=== PATIENT | female | born 1960 | race American Indian/Alaskan Native ===

== ENCOUNTER 2020-10-03 10:00 | Day surgery (SDC) | payer MEDICARE, OTHER, MEDICAID ==
[~2020-10-03] VITALS: Ht 162.6 cm; Wt 94.5 kg
[~2020-10-03 10:00] MED LIST: BACLOFEN10 MG PO; BUPROPION XL150 MG PO; CALCIUM + VITA1 EAC1 PO; CIPRO500 MG PO; CLINDAMYCIN HC300 MG PO; CYMBALTA60 MG PO; DEXILANT60 MG PO; DICLOFENAC POTA50 MG PO; DICLOFENAC SODI50 MG PO; DICYCLOMINE HCL10 MG PO; FEOSOL325 MG PO; FEXOFENADINE H180 MG PO; FLAGYL500 MG PO; FOSAMAX70 MG PO; GABAPENTIN300 MG PO; HYDROCODON-ACE1 EA11 PO; LOPERAMIDE2 MG PO; LYRICA100 MG PO; MAGNESIUM OXID400 MG PO; METHOCARBAMOL750 MG PO; MULTI VITAMIN1 EACH PO; NICOTINE LOZENGE2 MG BUCCAL; NORCO 10-325 T1 EACH PO; OXYCODONE HCL10 MG PO; OXYCODONE HCL15 MG PO; OXYCONTIN10 MG PO; PLAQUENIL200 MG PO; POTASSIUM CHLO20 ME1 PO; QUESTRAN PACKET4 GM PO; RHINASE LUBRICA30 ML NAS; RHINOCORT AQUA8.6 GM NAS; ROBAXIN-750750 MG PO; ROPINIROLE HCL0.5 MG PO; ROPINIROLE HCL2 MG PO; VITAMIN C500 M5 PO; ZYRTEC10 M3 PO
[2020-10-03] MEDS ORDERED: HYDROCODON-ACE1 EA10 PO (13:08)
[2020-10-03] MEDS ORDERED: DICLOFENAC SODI75 MG PO (13:08)
--- NOTE | 2020-10-07 07:05 | OR ---
[facility] [address] [place], [place] [address] Signed DATE OF OPERATION: 10/03/2020 SURGEON: Julius Mclean MD PREOPERATIVE DIAGNOSIS: Medial meniscus tear, lateral meniscus tear, right knee. POSTOPERATIVE DIAGNOSIS: Medial meniscus tear, lateral meniscus tear, right knee. PROCEDURE PERFORMED: Right knee arthroscopy with debridement. CABLE ENGINEER: Stormy Smith PA-C ANESTHESIA: General. BLOOD LOSS: Minimal. BRIEF HISTORY: Nathalie is a 60-year-old female with continued worsening of pain in her knee. MRI is consistent with the above. The risks and benefits of operative treatment were discussed with her and she elected to proceed. DESCRIPTION OF PROCEDURE: Once consent was obtained, she was taken to the operating room. After adequate anesthesia, she was placed on operating room table, all downside pressure points were well padded. The right knee was prepped and draped in a standard sterile fashion. The knee was placed in the leg donohue with no tourniquet. The left knee was flexed, abducted, and externally rotated on a well-padded leg donohue. The standard inferolateral and superolateral portals were made and the scope was introduced in the knee. 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 The trochlea was intact. Lateral compartment showed a frayed tear posteriorly, but it was minimal. The medial compartment showed near 100% grade 4 chondromalacia with exposed bone on both sides. Electronically Signed By: JULIUS MCLEAN MD 10/07/20 0705 PATIENT NAME: NATHALIE MOORE OPERATIVE REPORT DATE OF : 60 REPORT #: [id number] PHYSICIAN: JULIUS MCLEAN MD PCP: BECK QUINTEROS MD REPORT IS CONFIDENTIAL AND NOT TO BE RELEASED WITHOUT AUTHORIZATION [address] [place], [place] [address] Signed There was complex tear posteriorly and medially. Standard inferomedial portal was re-established and the meniscus was further debrided. There were no cartilage because there was basically no cartilage left. The scope was withdrawn. Portals were closed with 3-0 nylon and the knee was injected with 60 mg Toradol. The wounds were dressed with Adaptic, ABD, and Sam wrap. She tolerated the procedure well. All sponge, needle, and instrument counts were correct. Julius Mclean MD BA/MODL /[id number] Copies: ~ Electronically Signed By: JULIUS MCLEAN MD 10/07/20 0705 PATIENT NAME: NATHALIE MOORE OPERATIVE REPORT DATE OF : 60 REPORT #: [id number] PHYSICIAN: JULIUS MCLEAN MD PCP: BECK QUINTEROS MD REPORT IS CONFIDENTIAL AND NOT TO BE RELEASED WITHOUT AUTHORIZATION
== END 2020-10-03 15:25 | disposition home or self-care (01) ==
LOC: DS 10:00
PROVIDERS: ATTEND Specialist
PROC: 0SBC4ZZ Excision of Right Knee Joint, Percutaneous Endoscopic Approach (ICD-10-PCS; principal; 2020-10-03 12:00)
DX: S83.231A Complex tear of medial meniscus, current injury, right knee, initial encounter (principal); S83.281A Other tear of lateral meniscus, current injury, right knee, initial encounter; M94.261 Chondromalacia, right knee; M81.0 Age-related osteoporosis without current pathological fracture; K21.9 Gastro-esophageal reflux disease without esophagitis; K58.9 Irritable bowel syndrome, unspecified; F17.210 Nicotine dependence, cigarettes, uncomplicated; F32.9 Major depressive disorder, single episode, unspecified; G43.909 Migraine, unspecified, not intractable, without status migrainosus; D66 Hereditary factor VIII deficiency; X58.XXXA Exposure to other specified factors, initial encounter; Z88.0 Allergy status to penicillin; Z88.2 Allergy status to sulfonamides; Z88.1 Allergy status to other antibiotic agents
CPT/HCPCS: 01400; J0690; J1885; J3010; J7121

== ENCOUNTER 2021-01-24 16:15 | Inpatient (IN) | payer MEDICARE, MEDICAID, OTHER ==
[~2021-01-24] VITALS: Ht 162.6 cm; Wt 88.9 kg
[~2021-01-24 16:15] MED LIST changes: -CALCIUM + VITA1 EAC1 PO; +CALCIUM 600+D1 EAC1 PO; +DICLOFENAC SODI75 MG PO; +HYDROCODON-ACE1 EA10 PO
[2021-01-24] MEDS ORDERED: IBU800 MG PO (16:48)
--- NOTE | 2021-01-24 19:09 | EKG ---
[facility] [address] [facility] [place], [place] [address] Signed Normal sinus rhythm Normal ECG When compared with ECG of 27-JAN-2020 15:22, No significant change was found Confirmed by SIVAKUMAR BECKWITH MD ([id number]) on 01/24/2021 7:08:51 PM Electronically Signed By: SIVAKUMAR BECKWITH MD 01/24/21 1909 PATIENT NAME: REAL MOORE MATTHIAS Electrocardiogram DATE OF : 60 PHYSICIAN: SIVAKUMAR BECKWITH MD REPORT #: [id number] REPORT IS CONFIDENTIAL AND NOT TO BE RELEASED WITHOUT AUTHORIZATION
--- NOTE | 2021-01-24 23:02 | NUR ---
PATIENT ARRIVED TO THE UNIT VIA STRETCHER. PATIENT WAS ABLE TO AMBULATE WITH MINIMAL ASSISTANCE TO THE RESTROOM. PATIENT WAS ABLE TO VOID. PATIENT IS IN BED RESTING. ADMISSION COMPLETED. PATIENT ON TELE #3 W/CPOX. PATIENT IS ON 3L VIA NC. PATIENTS IV INFUSING PER ORDER. PATIENTS SCHEDULED MEDICATIONS GIVEN PER ORDER. PATIENT DENIES ANY PAIN OR SOB. PATIENT EDUCATED ON PLAN OF CARE AND ALL QUESTIONS ANSWERED. PATIENT DENIES ANY FURTHER NEEDS. PATIENT IS EATING A SANDWICH BOX AT THIS TIME.
--- NOTE | 2021-01-25 00:52 | NUR ---
PATIENT IS RESTING IN BED WITH EYES CLOSED, RR 19. TELE#4, SR AND OXYGEN SATURATION IS 93%. CALL LIGHT IN REAC.H
--- NOTE | 2021-01-25 02:00 | NUR ---
PATIENTS VITALS TAKEN AND RECORDED. INTAKE AND OUTPUT RECORDED. PATIENT ASSISTED TO THE RESTROOM A SBA BY HIDE STRETCHER HAND. PATIENT WAS ABLE TO VOID. PATIENT IS BACK IN BED RESTING. PATIENT IS ON 3L VIA NC. PATIENT DENIES ANY PAIN OR SOB. PATIENT DENIES ANY FURTHER NEEDS. CALL LIGHT IN REACH.
--- NOTE | 2021-01-25 02:03 | NUR ---
SBA TO THE BATHROOM. PATIENT VOIDED 400ML. PATIENT IS BACK IN BED. WARM BLANKET PROVIDED. NO OTHER NEEDS AT THIS TIME.
--- NOTE | 2021-01-25 04:07 | NUR ---
PATIENT IS IN BED RESTING IN BED WITH EYES CLOSED, OXYGEN SATURATION IS 92% ON 3L VIA NC. CALL LIGHT IN REACH.
--- NOTE | 2021-01-25 06:19 | NUR ---
PATIENTS VITALS TAKEN AND RECORDED. INTAKE AND OUTPUT RECORDED. IV INFUSING PER ORDER. PATIENT DENIES ANY NEEDS. CALL LIGHT IN REACH.
--- NOTE | 2021-01-25 06:31 | NUR ---
WENT INTO THE ROOM TO GET BREAKFAST ORDER. PATIENT WAS UP TO USE THE BATHROOM. SBA. PATIENT IS BACK IN BED. NO OTHER NEEDS AT THIS TIME.
--- NOTE | 2021-01-25 08:02 | NUR ---
Shift report received from CINDY French, pt resting in bed safely w/ call light in reach and eyes closed, RR even and unlabored, O2 sats 94% on 4L via NC.
--- NOTE | 2021-01-25 08:04 | NUR ---
PATIENT AWAKE IN BED VISITING ON PHONE WITH SON. PATIENT RECIEVED ICE WATER. WHITE BOARD UPDATED. SHE DOES NOT NEED ANYTHING ELSE AT THIS TIME. CALL LIGHT IN REACH.
--- NOTE | 2021-01-25 09:25 | NUR ---
Pt states she lives alone. Children live in town, Pt uses a walker at home. Denies needs to go home, children will assist her.
--- NOTE | 2021-01-25 09:39 | NUR ---
ASSISTED PATIENT BACK TO BED FROM BATHROOM. TOOK PATIENTS VITALS AND ALL WERE IN NORMAL RANGE. PATIENT REQUESTED COLD WASH RAG FOR FOREHEAD.SHE DOES NOT NEED ANYTHING ELSE AT THIS TIME. CALL LIGHT IN REACH.
--- NOTE | 2021-01-25 10:00 | NUR ---
PT RESTING IN BED W/ CALL LIGHT IN REACH. MORNING ASSESMENT COMPLETE, SCHEDULED MEDS GIVEN, AND IV FLUIDS AND ABX INFUSING PER PROVIDER ORDERS. PT C/O DUNN, PRN TYLENOL GIVEN. PT DENIES ANY OTHER NEEDS AT THIS TIME, O2 SATS 96% ON 4L VIA NC.
--- NOTE | 2021-01-25 12:00 | NUR ---
Pt sitting up in bed safely w/ call light in reach. Daughter in room, given update. Pt denies any needs at this time.
[2021-01-25] MEDS ORDERED: HYDROCODON-ACE1 EA10 PO (12:53)
[2021-01-25] MEDS ORDERED: METHOCARBAMOL500 MG PO (12:55)
[2021-01-25] MEDS ORDERED: PREGABALIN150 MG PO (12:57)
[2021-01-25] MEDS ORDERED: ACETAMINOPHEN325 M1 PO (12:59)
[2021-01-25] MEDS ORDERED: LIDOCAINE1 EACH TD (13:00)
[2021-01-25] MEDS ORDERED: FLECTOR1 EACH TOP (13:02)
--- NOTE | 2021-01-25 13:06 | NUR ---
MED REC COMPLETED BY PHARMACY
--- NOTE | 2021-01-25 14:30 | NUR ---
PT C/O PERSISTENT COUGH, PRN ROBITUSSIN GIVEN, PT RESTING SAFELY IN BED W/ CALL LIGHT IN REACH, DENIES ANY OTHER NEEDS AT THIS TIME
--- NOTE | 2021-01-25 16:03 | NUR ---
Pt called for assistance to BR, 1PA w/FWW. Pt back in bed now resting safely w/ call light in reach, pt denies any other needs at this time
--- NOTE | 2021-01-25 18:12 | NUR ---
PT IS RESTING IN BED SAFELY W/ CALL LIGHT IN REACH, EATING DINNER PT DENIES ANY NEEDS AT THIS TIME
--- NOTE | 2021-01-25 19:37 | NUR ---
RECEIVED REPORT FROM DAY SHIFT RN. PATIENT IS RESTING IN BED VISTING WITH DAUGHTER. PATIENT DENIES ANY NEEDS. CALL LIGHTIN REACH.
--- NOTE | 2021-01-25 20:50 | NUR ---
IN TO ASSIST RN WITH VITALS, TRASH EMPTIED, NO FURTHER NEEDS
--- NOTE | 2021-01-25 21:24 | NUR ---
PATIENT ASSESMENT COMPLETED. PATIENT IS RESTING IN BED WATCHING TV. IV INFUSING PER ORDER. SCHEDULED MEDICATIONS GIVEN PER ORDER. PATIENT GIVEN PRN TYLENOL FOR A HEADACHE. PRN COUGH MEDICATION GIVEN PER ORDER. PATIENT REMAINS ON 3L VIA NC. PATIENT DENIES ANY SOB. DAUGHTER AT BEDSIDE. ALL QUESTIONS ANSWERED. PATIENT DENIES ANY FURTHER NEEDS. CALL LIGHT IN REACH.
--- NOTE | 2021-01-25 21:37 | NUR ---
PATIENT IS UPT TO THE RESTRROM WITH DAUGHTER. PATIENT WAS ABLE TO VOID. PATIENT BACK IN BED RESTING. EDUCATED PATIENT ON IS. PATIENT DENIES ANY NEEDS. CALL LIGHT IN REACH.
--- NOTE | 2021-01-25 23:24 | NUR ---
PATIENT IS RESTING IN BED WITH EYES CLOSED, 94 ON 3L VIA NC HR 80 ON TELE#3, CALL LIGHT IN REACH.
--- NOTE | 2021-01-26 01:45 | NUR ---
PATIENT ASSISTED TO THE RESTROOM A SBA. PATIENT WAS MARILYN TO VOID. PATIENT IS BACK IN BED RESTING. PATIENT GIVEN PRN COUGH MEDICATION PER PATIENT REQUEST. PATIENT PROVIDED WITH FRESH ICE WATER. NO FURTHER NEEDS NOTED. CALL LIGHT IN REACH.
--- NOTE | 2021-01-26 03:37 | NUR ---
PATIENT IS RESTING IN BED WITH EYES CLSOED. TELE #3, HR 73, OXYGEN IS 95% ON 3L VIA NC
--- NOTE | 2021-01-26 05:17 | NUR ---
PT CALLED REQUESTING BR ASSISTANCE. ROOM ORGANIZED, TRASH EMPTIED, VITALS AND IS & OS CHARTED. FRESH ICE WATER PROVIDED. NO OTHER IMMEDIATE NEEDS AT THIS TIME.
--- NOTE | 2021-01-26 05:41 | NUR ---
LAB IN ROOM. PATIENT IS RESTING IN BED. PATIENT DENIES ANY NEEDS. CALL LIGHT IN REACH.,
--- NOTE | 2021-01-26 07:05 | NUR ---
report recieved from blasting clay miner RN denies any needs at the moment.
--- NOTE | 2021-01-26 09:15 | NUR ---
Spoke with Nancy. She is feeling better today. Now plans on going home with her daughter until she is feeling better. Pt denies further needs for DME. She has a walker, shower chair, and a hospital bed at home if needed. We did discuss 02 need and pt would like Reagan if needs 02 on dc.
--- NOTE | 2021-01-26 09:16 | NUR ---
RN to do morning meds and assessment patient on 3L nc, sitting in chair, does not want to eat breakfast this morning, complaining of a headache prn tylenol given no other needs at the moment.
--- NOTE | 2021-01-26 11:30 | NUR ---
rn in room rounding on patient, patient laying in bed Dr Bell in to round as well, states headache is better, ice water filled, no other needs at the moment.
--- NOTE | 2021-01-26 12:50 | NUR ---
RN IN IN ROOM TO ASSIST PATIENT WITH SHOWER.
--- NOTE | 2021-01-26 13:55 | NUR ---
PT ALERT, ORIENTED AND HAD JUST HAD SHOWER.PT STATED SHE HAS TROUBLE SLEEPING BUT WOULD REALLY LIKE TO SLEEP WELL. UNDERGROUND MINE MACHINERY MECHANIC COMING TO TAKE PT FOR A WALK IN HALLWAY. GAVE ENCOURAGEMENT AND A G.POST. WILL FOLLOW
--- NOTE | 2021-01-26 14:20 | NUR ---
Patient walked to the end of the hallway and back. Patient was on 1L of oxygen while walking. Patient tolerated the walk but stated that she felt weaker than normal. Patient is now back in her room sleeping.
--- NOTE | 2021-01-26 14:48 | NUR ---
rn in room rounding on patient, patient on 1L nc, requesting to go on a walk. skilled nursing facility counselor assisting patient on walk.
--- NOTE | 2021-01-26 20:43 | NUR ---
Awake, up to br w familys assist. ivf infusing w/o problems. on 1LNC, no sob, lungs with exp wheezing left lower lobes, hacky, productive at times cough present. turns and repositions self in bed. medicated with melatonin per c/o insomnia. tolerating liquids and diet well, no emesis, family in room
--- NOTE | 2021-01-27 00:31 | NUR ---
resting, no distress, O2 1L NC, ivf infusing, no distress, turns and repositions self in bed.
--- NOTE | 2021-01-27 02:39 | NUR ---
Up to br, voided, large amount of urine, back to bed, on 1LNC, sats 94% on return, no sob noted this shift. SL at this time. tolerating liquids well. medicated with Tylenol 650mg po and Robitussin per c/o cough
--- NOTE | 2021-01-27 03:57 | NUR ---
RESTING, EYES CLOSED, ON 1LNC, TURNS AND REPOSITIONS SELF IN BED. CALL LIGHT AND FLUIDSA T BEDSIDE
--- NOTE | 2021-01-27 05:06 | NUR ---
Pt on 1L NC, lungs with exp wheezing, coarse, no sob noted with exertion. walks to br, voiding large amounts of urine, has had a bm.tolerating liquids well. no emesis. SL patent, tolered po abx, has been medicated with tylenol and Robutossin syrup, effective. pleasant and coop.
--- NOTE | 2021-01-27 07:15 | NUR ---
REPORT RECIEVED FROM COMPUTER NETWORKING INSTRUCTOR RN, PATIENT IN BED PRNI IMODIUM GIVEN AT SHIFT CHANGE PER PATIENT REQUEST, 1LNC , DENIES ANY OTHER NEEDS AT THE MOMENT.
--- NOTE | 2021-01-27 07:15 | NUR ---
medicated with imodium 2mg po her requests prior to meals. Up to br, voided, back to bed, O2 1L NC, tolerated well, no sob.
--- NOTE | 2021-01-27 08:15 | NUR ---
PT RESTING IN BED, BUT AWAKE. UPDATED WHITE BOARD. AM CARE. PT ACCEPTED WARM WASHCLOTH. BLINDS OPENED. PT NOW IN CHAIR. ROOM TIDIED.
--- NOTE | 2021-01-27 08:40 | NUR ---
KNITTING TEACHER AND INSTRUCTOR ADMININISTERING MORNING MEDS.
--- NOTE | 2021-01-27 09:45 | NUR ---
PATIENT REQUESTING TYELNOL FOR A HEADACHE, GOING ON WALK WITH DIRECTOR OF RETAIL ANALYTICS.
--- NOTE | 2021-01-27 10:19 | NUR ---
DR MEYER ROUNDED ON PATIENT PER PROVIDER OK TO HAVE PATIENT DC WILL HAVE RT EVAL FOR HOME OXYGEN.
[2021-01-27] MEDS ORDERED: DOXYCYCLINE HY100 MG PO (10:26)
[2021-01-27] MEDS ORDERED: IPRAT-ALBUT 0.5-3 ML INH (10:27)
[2021-01-27] MEDS ORDERED: PREDNISONE20 MG PO (10:28)
[2021-01-27] MEDS ORDERED: AEROECLIPSE II1 EACH MISC (10:30)
--- NOTE | 2021-01-27 10:45 | NUR ---
Nancy is up in her chair, she does have a noted cough today and she reamins on 2 liters of oxygen with oxygen saturation of 98%. She is aware that she is going home today, and that she will be going home on oxygen. She would like her oxygen to be supplied by [employer] out of [place]. Orders to be faxed. Nancy will be going home by private vehicle with her daughter. Nancy has explained that she will be staying with her daughter as long as needed until she is recovered. Normally she lives at home by herself in [place], [place]. Nancy denies any questions or conerns regarding going home. Patient states her daughter can fill her prescriptions. She states that she has funds for prescriptions, and is not concerned about obtaining food for her needs. She has no concerns with heat and utilities, states she is able to pay all her bills one month ahead of time. She states that she is on a budget and has planned for "things like this." She has no other comments or concerns at this time.
--- NOTE | 2021-01-27 10:54 | NUR ---
Patient went for a walk this morning. Tolerated the walk well while still on 1L of O2 NC. Patient stated that she was tired when she got back to the room. Patient is now relaxing in room.
--- NOTE | 2021-01-27 12:02 | NUR ---
Orders for oxygen and nebulizer have been faxed to [employer] [employer] states that they will be able to deliver today. Patient can be sent homne with oxygen tanks from hospital if needed. Emiliana Llanes is here to take her mom home. Daughter's phone, , address [address] [place] [address], [id number]. All contact information and address given to [employer] for delivery of oxygen and nebulizer. Daughter Shraddha and patient aware of the plan. Patient states she is ready to go home with her daughter and she feels safe with the discharge plan.
== END 2021-01-27 13:08 | disposition home or self-care (01) | DRG 196 ==
LOC: ED 16:15 → MS 20:46
PROVIDERS: ADMIT Internal Medicine; ATTEND Internal Medicine
DX: J84.9 Interstitial pulmonary disease, unspecified (principal); J15.4 Pneumonia due to other streptococci; J96.01 Acute respiratory failure with hypoxia; J44.1 Chronic obstructive pulmonary disease with (acute) exacerbation; J44.0 Chronic obstructive pulmonary disease with (acute) lower respiratory infection; K21.9 Gastro-esophageal reflux disease without esophagitis; G89.4 Chronic pain syndrome; M81.0 Age-related osteoporosis without current pathological fracture; Z88.0 Allergy status to penicillin; Z88.2 Allergy status to sulfonamides; Z88.1 Allergy status to other antibiotic agents; Z88.8 Allergy status to other drugs, medicaments and biological substances; M19.90 Unspecified osteoarthritis, unspecified site; F17.200 Nicotine dependence, unspecified, uncomplicated; Z90.49 Acquired absence of other specified parts of digestive tract; Z98.890 Other specified postprocedural states; Z79.899 Other long term (current) drug therapy; G25.81 Restless legs syndrome; M32.9 Systemic lupus erythematosus, unspecified
CPT/HCPCS: 71045; 80048; 80053; 83735; 83880; 84484; 85025; 93005; 93010; 94640; 94667; 94668; 94760; 94761; 96374; 99284-25; C9803; J1650; J2930; J3480; J7512; U0003

== ENCOUNTER 2021-05-01 22:33 | Emergency (ER) | payer MEDICARE, MEDICAID, OTHER ==
[~2021-05-01] VITALS: Ht 162.6 cm; Wt 97.5 kg
[~2021-05-01 22:33] MED LIST changes: +ACETAMINOPHEN325 M1 PO; +AEROECLIPSE II1 EACH MISC; +DOXYCYCLINE HY100 MG PO; +FLECTOR1 EACH TOP; +IBU800 MG PO; +IPRAT-ALBUT 0.5-3 ML INH; +LIDOCAINE1 EACH TD; +METHOCARBAMOL500 MG PO; +PREDNISONE20 MG PO; +PREGABALIN150 MG PO
== END 2021-05-02 02:25 | disposition home or self-care (01) ==
LOC: ED 22:33
DX: S00.83XA Contusion of other part of head, initial encounter (principal); F10.129 Alcohol abuse with intoxication, unspecified; Y90.8 Blood alcohol level of 240 mg/100 ml or more; W18.30XA Fall on same level, unspecified, initial encounter; M19.90 Unspecified osteoarthritis, unspecified site; F17.200 Nicotine dependence, unspecified, uncomplicated; Z88.0 Allergy status to penicillin; Z88.2 Allergy status to sulfonamides; Z88.1 Allergy status to other antibiotic agents; Z79.899 Other long term (current) drug therapy
CPT/HCPCS: 36415; 70450; 70486; 72125; 99284-25; G0480

== ENCOUNTER 2022-01-17 11:10 | Emergency (ER) | payer MEDICARE, MEDICAID, OTHER ==
[~2022-01-17] VITALS: Ht 162.6 cm; Wt 101.2 kg
[~2022-01-17 11:10] MED LIST changes: +DITROPAN XL5 MG PO; +IBUPROFEN800 MG PO; +MEDI-PATCH WIT1 EACH TOP; +OXYCODONE HCL5 MG PO; +SYMBICORT 16010.2 GM INH; +XARELTO10 MG PO
[2022-01-17] MEDS ORDERED: VENTOLIN HFA18 GM INH (16:24)
[2022-01-17] MEDS ORDERED: PREDNISONE20 MG PO (16:24)
[2022-01-17] MEDS ORDERED: ZITHROMAX250 MG PO (16:24)
== END 2022-01-17 16:46 | disposition home or self-care (01) ==
LOC: ED 11:10
DX: J44.9 Chronic obstructive pulmonary disease, unspecified (principal); F17.200 Nicotine dependence, unspecified, uncomplicated; Z20.822 Contact with and (suspected) exposure to COVID-19; Z88.0 Allergy status to penicillin; Z88.2 Allergy status to sulfonamides; Z88.1 Allergy status to other antibiotic agents; Z79.899 Other long term (current) drug therapy
CPT/HCPCS: 87502; C9803; U0003

== ENCOUNTER 2024-04-20 13:30 | Emergency (ER) | payer MEDICARE, MEDICAID, OTHER ==
[~2024-04-20] VITALS: Ht 162.6 cm; Wt 83.0 kg
[~2024-04-20 13:30] MED LIST changes: +VENTOLIN HFA18 GM INH; +ZITHROMAX250 MG PO
[2024-04-20] MEDS ORDERED: ALBUTEROL/IPRATROPIUM 3 ML NEB INH PRN (13:45)
[2024-04-20 13:56] LABS: BASOPHILS 0.9 % (0-2); EOSINOPHILS 1.1 % (0-6); HEMATOCRIT 41.7 % (35.0-50.0); HEMOGLOBIN 13.9 g/dL (12.0-18.0); LYMPHOCYTES 15.3 % (24-44); MCH 30.8 (27-36); MCHC 33.4 g/dl (30-36); MCV 92.2 fl (81-99); MONOCYTES 11.4 % (0-12); NEUTROPHILS 71.3 % (39-80); PLATELET COUNT 177 K/uL (140-440); RBC 4.52 M/ul (4.3-5.7); RDW 13.2 (10.5-15.0)
[2024-04-20 14:14] LABS: ALBUMIN 2.9 g/dL (3.4-5.0); ALBUMIN/GLOBULIN RATIO 0.97 (1.1-2.4); ANION GAP 14.2 (7-21); BILIRUBIN, TOTAL 0.7 ng/dL (0.2-1.0); BUN/CREATININE RATIO 19.32 (6.0-28.6); CALCIUM 8.5 mg/dL (8.5-10.1); CREATININE, SERUM 1.19 mg/dL (0.55-1.02); MAGNESIUM 1.7 mg/dL (1.8-2.4); POTASSIUM 4.2 mmol/L (3.5-5.1); PROTEIN, TOTAL 5.9 g/dL (6.4-8.2)
[2024-04-20] MEDS ORDERED: methylPREDNISolone SOD SUCC 125 MG/2 ML VIAL IV ONE (14:15)
[2024-04-20] MEDS ORDERED: FUROSEMIDE 40 MG/4 ML VIAL IV ONE (15:30)
[2024-04-20 20:30] VITALS: BP 131/91
--- NOTE | 2024-04-20 23:17 | EKG ---
[facility] [address] [facility] [place] [address] Signed Sinus tachycardia Nonspecific T wave abnormality Abnormal ECG When compared with ECG of 24-JAN-2021 16:56, Nonspecific T wave abnormality now evident in Anterior leads Confirmed by Ziggy Mcghee MD () on 04/20/2024 11:17:40 PM Electronically Signed By: ZIGGY MCGHEE MD 04/20/24 2317 PATIENT NAME: MOOREREAL ANNE Electrocardiogram DATE OF : 60 PHYSICIAN: ZIGGY MCGHEE MD REPORT #: [id number] REPORT IS CONFIDENTIAL AND NOT TO BE RELEASED WITHOUT AUTHORIZATION
== END 2024-04-20 20:30 | disposition short-term general hospital (02) ==
LOC: ED 13:30
PROVIDERS: Emergency Medicine
DX: I50.9 Heart failure, unspecified (principal); J44.9 Chronic obstructive pulmonary disease, unspecified; F17.200 Nicotine dependence, unspecified, uncomplicated; Z88.0 Allergy status to penicillin; Z88.2 Allergy status to sulfonamides; Z88.1 Allergy status to other antibiotic agents; Z79.899 Other long term (current) drug therapy
CPT/HCPCS: 36415; 71045; 80053; 83735; 83880; 84484; 85025; 93005; 93010; 93306; 94640; 96374; 96375; 99285-25; J1940; J2919

== ENCOUNTER 2024-12-22 13:40 | Inpatient (IN) | payer MEDICARE, OTHER ==
[~2024-12-22] VITALS: Ht 162.6 cm; Wt 78.3 kg
[2024-12-22 13:49] LABS: BASOPHILS 0.7 % (0.1-1.2); EOSINOPHILS 2.5 % (0.7-5.8); LYMPHOCYTES 16.6 % (19.3-51.7); MCH 31.6 PG (25.6-32.2); MCHC 33.7 g/dL (32.2-35.5); MCV 93.7 fL (79.4-94.8); MONOCYTES 8.3 % (4.7-12.5); NEUTROPHILS 71.7 % (34.0-71.1); RBC 3.67 M/uL (3.93-5.22)
[2024-12-22 14:13] LABS: ALT (SGPT) 37.0 U/L (14-59); AST (SGOT) 33.0 U/L (15-37); GLOMERULAR FILTRATION RATE,EST 99.0 mL/min (>60); PROTEIN, TOTAL 6.4 g/dL (6.4-8.2); UREA NITROGEN 9.0 mg/dL (7-18)
[2024-12-22] MEDS ORDERED: SODIUM CHLORIDE 0.9% 500 ML IV PRN (14:45)
--- NOTE | 2024-12-22 15:08 | EKG ---
[facility] [address] [place] [address] Signed Unusual P axis, possible ectopic atrial tachycardia Nonspecific ST and T wave abnormality Abnormal ECG When compared with ECG of 22-DEC-2024 13:42, (Unconfirmed) Ectopic atrial rhythm has replaced Sinus rhythm Vent. rate has increased BY 70 BPM Nonspecific T wave abnormality now evident in Inferior leads Nonspecific T wave abnormality has replaced inverted T waves in Anterior leads Confirmed by MCKAYLA ENNIS MD ([id number]) on 12/22/2024 3:08:18 PM Electronically Signed By: MCKAYLA ENNIS 12/22/24 1508 PATIENT NAME: REAL MOORE Electrocardiogram DATE OF : 60 PHYSICIAN: MCKAYLA ENNIS REPORT #: [id number] REPORT IS CONFIDENTIAL AND NOT TO BE RELEASED WITHOUT AUTHORIZATION
--- NOTE | 2024-12-22 15:08 | EKG ---
[facility] [address] [facility] [place] [address] Signed Sinus tachycardia with premature atrial complexes Possible Left atrial enlargement Nonspecific T wave abnormality Abnormal ECG When compared with ECG of 20-APR-2024 13:37, premature atrial complexes are now present Nonspecific T wave abnormality, worse in Lateral leads Confirmed by MCKAYLA ENNIS MD ([id number]) on 12/22/2024 3:08:38 PM Electronically Signed By: MCKAYLA ENNIS 12/22/24 1508 PATIENT NAME: REAL MOORE MATTHIAS Electrocardiogram DATE OF : 60 PHYSICIAN: MCKAYLA ENNIS REPORT #: [id number] REPORT IS CONFIDENTIAL AND NOT TO BE RELEASED WITHOUT AUTHORIZATION
[2024-12-22] MEDS ORDERED: ASPIRIN 81 MG CHEW PO ONE (16:30)
[2024-12-22] MEDS ORDERED: METOPROLOL TARTRATE 5 MG/5 ML VIAL IV ONE ×2 (17:00→23:30)
[2024-12-22] MEDS ORDERED: NICODERM CQ1 EAC1 TD (17:22)
[2024-12-22] MEDS ORDERED: TRAZODONE HCL100 MG PO (17:23)
[2024-12-22] MEDS ORDERED: ZOLOFT25 MG PO (17:24)
[2024-12-22] MEDS ORDERED: ALDACTONE25 MG PO (17:24)
[2024-12-22] MEDS ORDERED: OMEPRAZOLE20 MG PO (17:25)
[2024-12-22] MEDS ORDERED: OLANZAPINE5 MG PO (17:25)
[2024-12-22] MEDS ORDERED: MELATONIN3 M3 PO (17:26)
[2024-12-22] MEDS ORDERED: ZESTRIL5 MG PO (17:27)
[2024-12-22] MEDS ORDERED: IMODIUM A-D2 M2 PO (17:27)
[2024-12-22] MEDS ORDERED: BUMETANIDE2 MG PO (17:28)
[2024-12-22] MEDS ORDERED: DIGITEK125 MCG PO (17:28)
[2024-12-22] MEDS ORDERED: DAPAGLIFLOZIN10 MG PO (17:30)
[2024-12-22 18:42] VITALS: BP 105/57
--- NOTE | 2024-12-22 18:58 | NUR ---
PT TO FLOOR WITH RN KARLENE AND LUCINDA. PT AWAKE AND TALKATIVE. GIVEN DINNER TRAY. BS CHECKED 104. STATES SHE IS NOT DIABETIC. TAKES JARDIANCE FOR HEART FAILURE ONLY. ABLE TO AMB TO BED ON OWN. TEXTING ON PHONE.
--- NOTE | 2024-12-22 20:00 | NUR ---
PATIENT'S DAUGHTER AND GRANDCHILDREN IN ROOM VISITING, PATIENT HAS EATEN90% OF HER DINNER TRAY, FAMILY IS EATING MCDONALDS IN ROOM, PATIENT IS NOT EATING THE FAST FOOD. SHE IS ALERT AND ORIENTED, SHE REPORTS NO PAIN AT THIS TIME. SHE DOES ASK FOR ICY HOT OR BENGAY, SOMETHING FOR LEG CRAMPS. NO OTHER COMPLAINTS OR NEEDS VERBLIZED AT THIS TIME.
[2024-12-22 20:24] VITALS: BP 113/66
[2024-12-22] MEDS ORDERED: MENTHOL TOP PRN (20:45)
[2024-12-22] MEDS ORDERED: METHYL SALICYLATE TOP PRN (20:45)
[2024-12-22] MEDS ORDERED: METOPROLOL TARTRATE 5 MG/5 ML VIAL IV PRN (20:45)
--- NOTE | 2024-12-22 20:55 | NUR ---
ROUNDED IN UNIT TO CHECK ON NEW ADMIT, NEW ORDERS FOR BENGAY CREAM PRN FOR LEG MUSCLE CRAMPS, AND PRN FOR LOPRESSOR 5MG PRN FOR SUSTAINED TACHYCARDIA BREAK THROUGH.
[2024-12-22] MEDS ORDERED: TRAZODONE HCL 50 MG TAB PO SCH (21:00)
[2024-12-22] MEDS ORDERED: IBLOOD GLUCOSE TEST STRIP 1 EA TEST VI SCH (21:00)
[2024-12-22] MEDS ORDERED: METOPROLOL SUCCINATE 25 MG TABCR PO SCH (21:00)
[2024-12-22] MEDS ORDERED: TRAZODONE HCL 100 MG TAB PO SCH (21:00)
[2024-12-22] MEDS ORDERED: INSULIN LISPRO 100 UNIT/ML ML SUB-Q SCH (21:00)
[2024-12-22 21:54] VITALS: BP 115/65
[2024-12-22 22:49] VITALS: BP 90/67
--- NOTE | 2024-12-22 23:00 | NUR ---
PATIENT OXIMETRY SENSOR NOTED OFF, THIS RN INTO ROOM. PATIENT IS TRYING TO SIT UP TO BEDSIDE, THIS RN ASSISTED PATIENT TO STAND AT BEDSIDE, SHE REPORTS HER LEG MUSCLES ARE CRAMPING REALLY BAD. SHE SAID THAT IT HELPS TO STAND AND STRETCH. PATIENT PROVIDED WARM BLANKETS TO WRAP AROUND BLE, SHE SAID THIS FEELS GOOD, BACK IN BED. BED ALARM NOW ON, CALL LIGHT IN REACH. AT NURSES STATION UPDATED, GAVE NEW ORDERS TO RECHECK LABS. BEDGAY IS ORDER FOR LEG CRAMPS, HOWEVER IT IS NOT AVAILABLE AT THIS TIME, NO IN HOUSE PHARMACY AT NIGHT.
[2024-12-22 23:17] VITALS: BP 111/77
[2024-12-22 23:34] LABS: PHOSPHORUS, INORGANIC 4.2 mg/dL (2.5-4.9)
--- NOTE | 2024-12-22 23:38 | NUR ---
PATIENT NOTED TO BE HAVING SIGNS/SYMPTOMS OF SLEEP APNEA, PATIENT FALLS ASLEEP OXYGEN SATURATION DROPS TO 77-80% ON ROOM AIR, ONCE AWAKE PATIENT RETURNS TO 94-98% ON ROOM AIR. AT NURSES STATION UPDATED, HE WENT INTO ROOM TO SEE PATIENT, PATIENT REPORTS TO THIS RN AND THAT SHE HAS HAD TO WEAR OXYGEN AT NIGHT IN THE PAST WHILE IN HOSPITAL, SHE HAS NOT HAD A SLEEP STUDY. GAVE ORDER TO PLACE OXYGEN 2L N.C. WHILE PATIENT SLEEPING.
[2024-12-23] VITALS (13 sets, daily range): BP systolic 90–112; BP diastolic 47–80
--- NOTE | 2024-12-23 02:41 | NUR ---
PATIENT SET OFF BED ALARM, THIS RN INTO ROOM, PATIENT GETTING OUT OF BED, SHE REPORTS SHE NEEDS TO USE THE BATHROOM. PATIENT STANDBY ASSIST WITH FWW TO BATHROOM, PATIENT TOLERATED ACTIVITY WELL. PATIENT VOIDED 300ML URINE YELLOW CLEAR MILDLY CONCENTRATED IN APPEARANCE. PATIENT BACK TO BED, BED ALARM ON, CALL LIGHT IN REACH ON BEDSIDE TABLE.
--- NOTE | 2024-12-23 04:07 | NUR ---
PATIENT SET OFF BED ALARM, THIS RN INTO PATIENT'S ROOM, SHE IS SITTING UP MOVING TO SIDE OF BED, SHE REPORTS HER RIGHT LEG IS CRAMPING AGAIN, THAT IT WOKE HER UP. PATIENT ASSISTED TO STAND AT BEDSIDE AND STRETCH, THEN ASSISTED BACK TO BED, WARM BLANKETS WRAPPED AROUND BLE, PATIENT REPORTS, "THAT FEELS GOOD." PATIENT HAS NO OTHER REQUESTS OR CONCERNS AT THIS TIME.
[2024-12-23 05:29] LABS: BASOPHILS 0.5 % (0.1-1.2); EOSINOPHILS 4.9 % (0.7-5.8); LYMPHOCYTES 26.7 % (19.3-51.7); MCH 31.9 PG (25.6-32.2); MCHC 33.1 g/dL (32.2-35.5); MCV 96.4 fL (79.4-94.8); MONOCYTES 11.8 % (4.7-12.5); NEUTROPHILS 55.8 % (34.0-71.1); RBC 3.57 M/uL (3.93-5.22)
[2024-12-23 05:47] LABS: ALT (SGPT) 52.0 U/L (14-59); AST (SGOT) 37.0 U/L (15-37); GLOMERULAR FILTRATION RATE,EST 98.0 mL/min (>60); PHOSPHORUS, INORGANIC 4.6 mg/dL (2.5-4.9); PROTEIN, TOTAL 5.7 g/dL (6.4-8.2); UREA NITROGEN 14.0 mg/dL (7-18)
--- NOTE | 2024-12-23 06:30 | NUR ---
PATIENT DAUGHTER INTO VISIT, PATIENT ALERT AND ORIENTED THIS AM, PATIENT WANTS TO WALK AROUND THE ROOM. PATIENT UP TO AMBULATE AROUND THE ROOM 5 LAPS. SHE TOLERATED WELL WITH SBA FWW. PATIENT BACK TO BED, SITTING UP VISITING WITH HER DAUGHTER. SHE REQUESTED COFFEE, DECAF COFFEE PROVIDED. PATIENT REPORTS NO FURTHER NEEDS AT THIS TIME.
--- NOTE | 2024-12-23 07:44 | NUR ---
UR CLINICAL REVIEW: 2MN VERONICA, MEETS INPT FOR CHF HEARTRATE UP TO 171, RESP UP TO 27, TROPONIN 53.8, CXR POSITIVE FOR PULMONARY EDEMA, OXYGEN DOES NOT USE AT BASELINE MEDICARE INPT 12/22/24 @ 1751 ORDER MATCHES REG NO AUTH REQUIRED PER MEDICARE RULES PLAN TO DC TO HOME WHEN MEDICALLY READY DC 12/23/24
--- NOTE | 2024-12-23 08:05 | NUR ---
SHIFT REPORT RECEIVED. PATIENT PROVIDED BREAKFAST TRAY. FAMILY AT BEDSIDE. NO OTHER NEEDS AT THIS TIME. CALL LIGHT IN REACH.
[2024-12-23] MEDS ORDERED: OLANZapine 10 MG TABDIS PO SCH (09:00)
[2024-12-23] MEDS ORDERED: NICOTINE 14 MG/24 HR 1 EA TDSY TD SCH (09:00)
[2024-12-23] MEDS ORDERED: BUMETANIDE 1 MG TAB PO SCH (09:00)
[2024-12-23] MEDS ORDERED: ENOXAPARIN SODIUM 40 MG/0.4 ML SYR SUB-Q SCH (09:00)
[2024-12-23] MEDS ORDERED: EMPAGLIFLOZIN 10 MG TAB PO SCH (09:00)
[2024-12-23] MEDS ORDERED: SERTRALINE HCL 25 MG TAB PO SCH (09:00)
[2024-12-23] MEDS ORDERED: SPIRONOLACTONE 25 MG TAB PO SCH ×2 (09:00)
[2024-12-23] MEDS ORDERED: PANTOPRAZOLE SODIUM 40 MG TABEC PO SCH (09:00)
--- NOTE | 2024-12-23 09:00 | NUR ---
PATIENT PROVIDED SCHEDULED MEDS PER ORDER. PATIENT IS TIRED BUT AAOX4 DURING ASSESSMENT. PATIENT DENIED CHEST PAIN OR PRESSURE AT THIS TIME; REPORTS GENERAL ACHES/PAINS IN JOINTS AND LEG CRAMPS. PATIENT IS CURRENTLY ON 2L NC WHILE RESTING DUE TO DESATS WITH SLEEP OVER NIGHT. PATIENT TOLERATES ROOM AIR WHILE UP TO THE BATHROOM AND RESTING IN BED AWAKE. PATIENT LUNG SOUNDS ARE COARSE IN UPPERS AND CRACKLES NOTED IN KATEY BASES. PATIENT HAS DRY COUGH. ABD IS DISTENDED, PATIENT STATES NORMAL. NONTENDER AND BOWEL SOUNDS ACTIVE. PATIENT ATE MOST HER BREAKFAST AND DENIES GI UPSET. PATIENT UP TO THE BATHROOM TO VOID. SBA WITH FWW; PATIENT APPEARS STEADY. NO OTHER NEEDS AT THIS TIME. PATIENT BACK TO BED TO REST. 2L NC IN PLACE. CALL LIGHT IN REACH. VS STABLE. HR 100-105 AT REST; UP TO 110 WITH AMBULATION.
[2024-12-23] MEDS ORDERED: METOPROLOL SUCCINATE 25 MG TABCR PO SCH (10:24)
[2024-12-23] MEDS ORDERED: ACETAMINOPHEN 500 MG TAB PO PRN (11:00)
--- NOTE | 2024-12-23 11:08 | NUR ---
PATIENT ATTEMPTING TO TAKE HERSELF TO THE BATHROOM FROM RECLINER. STAFF ASSISTED PATIENT TO AMBULATE TO BATHROOM. AND REMINDED PATIENT OF NEED TO CALL BEFORE GETTING UP. PATIENT AGREES. PATIENT RETURNED TO THE BED FOR NOW. STATES SHE FEELS "WORE OUT" FROM YESTERDAY. CALL LIGHT IN REACH. BED ALARM ACTIVE.
--- NOTE | 2024-12-23 11:28 | NUR ---
Stopped to see Nathalie. She is sleeping with her head covered. I will return later to complete her assessment.
--- NOTE | 2024-12-23 11:36 | NUR ---
VISITED DURING SPIRITUAL CARE ROUNDS. PT APPEARED TO BE SLEEPING. DID NOT DISTURB. PROVIDED PRAYER.
[2024-12-23] MEDS ORDERED: PHARMACY RENAL DOSE ADJUSTMENT 1 DOSE MISC PO SCH (12:00)
--- NOTE | 2024-12-23 12:05 | NUR ---
PATIENT UP TO THE BATHROOM. WALKS WELL WITH FWW. PATIENT RETURNED TO BED, SITTING ON EDGE TO ATE HER LUNCH. REMINDED PATIENT NOT TO EXIT THE BED AT ALL UNLESS SHE USES CALL LIGHT. PATIENT VERBALIZED UNDERSTANDING. CALL LIGHT NEXT TO PATIENT.
--- NOTE | 2024-12-23 13:30 | NUR ---
Spoke with Nancy. Conversation is difficult as she is sleepy and doses between questions. She is able to answer most questions, but is difficult to understand as she seems to have ill fitting teeth. Per pt she lives in a house with two steps, her niece and daughter live with her. She uses a walker. Pt wants to go home on discharge. She states family help if needed. I will follow up with pt tomorrow and attempt to obtain more information of pts needs. No family in room at my visit.
--- NOTE | 2024-12-23 14:03 | NUR ---
ASSISTED PATIENT UP TO THE BATHROOM. PATIENT STEADY ON HER FEET WITH FWW. PATIENT PLACED ON TELE. VS STABLE. PATIENT DENIED CHEST PAIN OR ANY CONCERNS. PATIENT BACK TO BED. CALL LIGHT IN REACH. BED ALARM ACTIVE.
[2024-12-23] MEDS ORDERED: GABAPENTIN 300 MG CAP PO SCH (15:00)
--- NOTE | 2024-12-23 17:55 | NUR ---
medications reconciled using [facility] medication list and patient interview
--- NOTE | 2024-12-23 19:15 | NUR ---
REVEIVED REPORT FROM CINDY THAYER. PATIENT RESTING IN BED WITH EYES CLOSED, RESPIRATIONS EVEN AND UNLABORED. FAMILY MEMBER WATCHING TV AT BEDISDE. NO NEEDS STATED AT THIS TIME. CALL LIGHT IN REACH. BED ALARM SET.
--- NOTE | 2024-12-23 20:58 | NUR ---
SCHEDULED MEDICATIONS ADMINISTERED PER ORDERS. HELD METOPROLOL FOR B/P DECREASE. DR TO BE NOTIFIED. ASSESSMENT COMPLETED. PATIENT UP TO BATHROOM WITH MIGUE PENALOZA. PATIENT SON IN ROOM AT BEDSIDE. PATIENT DENIES ANY NEEDS AT THIS TIME. BELONGINGS AND CALL LIGHT IN REACH.
--- NOTE | 2024-12-23 22:06 | NUR ---
TC TO DR. ENNIS, INFORMED OF VS AND HOLDING OF METOPROLOL. PER MD, OKAY TO GIVE 25MG OF METOPROLOL DOSE NOW. NO VS PARAMETERS AT THIS TIME, CALL MD BEFORE HOLDING MEDICATION.
--- NOTE | 2024-12-23 22:19 | NUR ---
TC TO DR. ENNIS TO INFORM OF VS PRIOR TO GIVING PO METOPROLOL. NEW ORDERS RECEIVED FOR IV METOPROLOL. HOLD PO METOPROLOL PER .
[2024-12-23] MEDS ORDERED: METOPROLOL TARTRATE 5 MG/5 ML VIAL IV ONE (22:30)
--- NOTE | 2024-12-23 22:35 | NUR ---
DR. ENNIS IN ROOM.
--- NOTE | 2024-12-23 22:35 | NUR ---
MEDICATION GIVEN PER MD ORDER. PATIENT RESTING IN BED, RESPIRATIONS EVEN AND UNLABORED. NO NEEDS, CALL LIGHT IN REACH
--- NOTE | 2024-12-23 23:47 | NUR ---
ROUNDED ON PATIENT, RESTING ON RIGHT SIDE WITH EYES CLOSED, RESPIRATIONS EVEN AND UNLABORED. TELE #8 ON. NO NEEDS IDENTIFED AT THIS TIME. CALL LIGHT IN REACH.
[2024-12-24] VITALS (22 sets, daily range): BP systolic 68–101; BP diastolic 34–62
--- NOTE | 2024-12-24 00:30 | NUR ---
PATIENT RESTING WITH EYES CLOSED, RESPIRATIONS EVEN AND UNLABORED. NO NEEDS IDENTIFIED, CALL LIGHT IN REACH
--- NOTE | 2024-12-24 02:03 | NUR ---
NURSE PRIVATE DUTY OBTAINED VITALS AND I&O. PT B/P ON MONITOR SHOWED 68/34. NURSE PRIVATE DUTY NOTIFIED FREELANCE PATTERNMAKERCINDY SAGE AND PRIMARY RN BRYANT AND CINDY HERNANDES.
--- NOTE | 2024-12-24 02:11 | NUR ---
IN ROOM TO ASSESS PATIENT. MANUAL BP COMPLETED. PATIENT LETHARGIC, SLOW TO ANSWER QUESTIONS, REPORTS SHE "FEELS THAT HER HEAD IS GOING TO EXPLODE", REPORTS "NUMBNESS AND TINGLING" THROUGHOUT HER BODY AND STATES "I JUST FEEL WEIRD". RAPID RESPONSE CALLED.
--- NOTE | 2024-12-24 02:17 | NUR ---
MD CONTACTED. INFORMED OF PATIENT CONDITION AND VS. NEW ORDERS RECEIVED FOR 250 ML NS BOLUS ONE TIME.
--- NOTE | 2024-12-24 02:20 | NUR ---
250ML NS BOLUS STARTED PER MD ORDER. PATIENT REPORTS DIZZINESS AND NUMBNESS AND TINGLING THROUGHOUT BODY.
[2024-12-24 02:46] LABS: BASOPHILS 1.0 % (0.1-1.2); EOSINOPHILS 4.2 % (0.7-5.8); LYMPHOCYTES 21.6 % (19.3-51.7); MCH 31.7 PG (25.6-32.2); MCHC 33.1 g/dL (32.2-35.5); MCV 95.7 fL (79.4-94.8); MONOCYTES 9.4 % (4.7-12.5); NEUTROPHILS 63.6 % (34.0-71.1); RBC 3.75 M/uL (3.93-5.22)
--- NOTE | 2024-12-24 02:47 | NUR ---
VS OBTAINED, DOCUMENTED. PATIENT REPORTS THAT SHE IS FEELING SLIGHTLY BETTER, REPORTS PRESSURE IN HER HEAD HAS DECREASED, REPORTS SHE STILL "FEELS WEIRD, WITH NUMBNESS AND TINGLING REMAINING" OTHERWISE IS IMPROVED. CPOX PLACED ON PATIENT, PATIENT ON 2L NC PER RT.
[2024-12-24 02:56] LABS: GLOMERULAR FILTRATION RATE,EST 98.0 mL/min (>60); UREA NITROGEN 19.0 mg/dL (7-18)
--- NOTE | 2024-12-24 03:00 | NUR ---
MD AT BEDSIDE. VERBAL ORDER RECEIVED FOR 1 ADDITIONAL 250ML NORMAL SALINE BOLUS IV ONE TIME.
[2024-12-24] MEDS ORDERED: SODIUM CHLORIDE 0.9% 250 ML IV ONE ×3 (03:15→15:00)
[2024-12-24] MEDS ORDERED: SODIUM CHLORIDE 0.9% 250 ML IV SCH (03:15)
--- NOTE | 2024-12-24 03:22 | NUR ---
2ND NS BOLUS STARTED AT THIS TIME.
--- NOTE | 2024-12-24 04:02 | NUR ---
PATIENT RESTING WITH EYES CLOSED, RESPIRATIONS EVEN AND UNLABORED. CPOX IN PLACE, NC 2L ON PATIENT. CALL LIGHT IN REACH
--- NOTE | 2024-12-24 05:21 | NUR ---
ROUNDED ON PATIENT, RESPIRATIONS EVEN AND UNLABORED, RESTING WITH EYES CLOSED. NO NEEDS, CALL LIGHT IN REACH
--- NOTE | 2024-12-24 06:34 | NUR ---
VS OBTAINED AND RECORDED, LUNG SOUNDS AUSCULTATED, CLEAR. UP TO BSC, DENIES DIZZINESS, DENIES LIGHTHEADEDNESS. PATIENT BACK TO BED WITH OUT DIFFICULTY. NO NEEDS, CALL LIGHT IN REACH
--- NOTE | 2024-12-24 07:35 | NUR ---
RECEIVED REPORT FROM CINDY HURTADO. PT RESTING IN BED WITH EYES CLOSED, UNLABORED BREATHING. NO OTHER NEEDS AT THIS TIME, CALL LIGHT IN REACH BED LOW.
--- NOTE | 2024-12-24 08:01 | NUR ---
PATIENT IN BED AT THIS TIME. JETTING MACHINE OPERATOR CHARTED HOURLY ROUNDS. CALL LIGHT WITHIN REACH, NO FURTHER NEEDS AT THIS TIME. PATIENT DECLINED CHAIR AT THIS TIME.
--- NOTE | 2024-12-24 09:13 | NUR ---
THIS RN UPDATES DR. ENNIS ON MANUAL BLOOD PRESSURE OF 82/54 AND MAP OF 63. STATES TO GIVE LISINOPRIL ORDERED AND TO HOLD METOPROLOL. ALSO STATES TO "TAKE ANOTHER BLOOD PRESSURE 20 MINUTES AFTER YOU GIVE THE LISINOPRIL AND CALL ME TO SEE ABOUT THE METOPROLOL". THIS RN STATES THAT SHE DOES NOT FEEL COMFORTABLE GIVING ABOVE MEDICATIONS WITH PT BP AND MAP WELL WITH PT BP LOWERING ON CONSUMER SAFETY OFFICER AFTER SIMILAR SITUATION. STATES TO GIVE THE MEDICATION HE STATED.
--- NOTE | 2024-12-24 09:30 | NUR ---
LE: ADMINISTERED MORNING MEDICATOINS. PRIMARY RN INSTRUCTED TO HOLD LISINOPRIL AND TOPROL XL SECONDARY TO LOW BP. HOSPITALIST DR ENNIS, ENTRED ROOM REQUESTING UPDATE WITH MEDICATIONS. REFERED PROVIDER TO PRIMARY RN REEMA WHITE. PROVIDED PATIENT WITH WARM BLANKET. NO OTHER NEEDS AT THIS TIME. CALL LIGHT WITHIN REACH. COMMUNICATED PLANS FOR SHOWER LATER IN THE AFTERNOON TO SHASHI RUVALCABA.
--- NOTE | 2024-12-24 09:35 | NUR ---
THIS RN TO CINDY GALVAN'S OFFICE TO CONSULT ON MEDICATIONS DISCUSSED IN THIS RN'S LAST NOTE (SEE RN NOTE). COLE RN RESEARCHING LISINOPRIL AND METOPROLOL CONTRAINDICATIONS AND PARAMETERS, SUGGESTS THAT THIS RN CAN CALL PHARMACY FOR ANY HARD STOP PARAMETERS. WHILE THIS RN AND CINDY GALVAN ARE LOOKING UP MEDICATIONS, DR. ENNIS TO CINDY GALVAN'S OFFICE. DR. ENNIS ASKS THIS RN, "DID YOU GIVE THE LISINOPRIL TO THE PATIENT?". THIS RN STATES, "NOT YET, WE ARE LOOKING UP THE MEDICATION". DR. ENNIS THEN STATES, "WELL GO GIVE IT TO HER, SHE NEEDS TO HAVE A BETA TATYNAA". THIS RN STATES, "I UNDERSTAND THAT, BUT I NEED TO DO MY DUE DILIGENCE AND LOOK UP THE MEDICATION BEFORE JUST GIVING IT WHEN I HAVE A CONCERN AND WHEN THE PATIENT HAD ISSUES LAST NIGHT WITH HER BLOOD PRESSURE AND CONTINUES TO HAVE LOW BLOOD PRESSURE". DR. ENNIS STATES, "SHE DIDN'T HAVE AN ISSUE BECAUSE OF THIS SHE HAD AN ISSUE BECAUSE OF TRAZADONE, IF I KNEW IT WAS GOING TO TAKE 20 MINUTES TO GIVE A MEDICATION I WOULD HAVE JUST DONE IT MYSELF". THIS RN THEN STATES, "IF YOU WOULD LIKE TO GIVE IT RIGHT NOW YOURSELF THAT IS FINE, BUT I NEED TO CHECK EVERYTHING BEFORE GIVING A MEDICATION I HAVE CONCERNS ABOUT". DR. ENNIS STATES, "FINE THEN GIVE ME THE LISINOPRIL AND I WILL GO GIVE IT". COLE RN STATES THAT MD CAN GIVE MEDICATION IF HE CHOOSES IT IS WITHIN HIS SCOPE. THIS RN PULLS LISINOPRIL AND GIVES MEDICATION TO DR. ENNIS, DR. ENNIS GRABS MEDICATION FROM THIS RN AND STATES, "I'M BUSY RIGHT NOW I WILL GIVE IN IT AWHILE". THIS RN STATES "OKAY". NO NEW ORDERS GIVEN AT THIS TIME.
--- NOTE | 2024-12-24 10:15 | NUR ---
Education completed on CHF. Pt verbalized understanding. All questions were answered at this time. Pt aware that if she has more questions I will return to room and answer them. Pt was given discharge packet Get with the [facility] Heart Failure.
--- NOTE | 2024-12-24 10:38 | NUR ---
DC REVIEW: IV FLUIDS THROUGH THE NIGHT. LIKELY TO DC TO HOME TODAY ADD: 12/24/2024 NO FURTHER NEEDS
--- NOTE | 2024-12-24 11:24 | NUR ---
VISITED DURING SPIRITUAL CARE ROUNDS. PT APPEARED TO BE SLEEPING. DID NOT DISTURB. PROVIDED PRAYER.
--- NOTE | 2024-12-24 13:24 | NUR ---
INTO SEE PATIENT. IMM LETTER COMPLETED. SON TO COME VISIT SOON. WILL GO HOME WITH NIECE AT TIME OF DISCHARGE. NO CM NEEDS.
--- NOTE | 2024-12-24 14:05 | NUR ---
PT LAYING IN BED ON TELEPSYCH APPOINTMENT. NO OTHER NEEDS AT THIS TIME, CALL LIGHT IN REACH, BED LOW.
--- NOTE | 2024-12-24 15:03 | NUR ---
PATIENT IN BED AT THIS TIME. THIS PARTNER MARKETING INTERN CHARTED I&O'S. CALL LIGHT WITHIN REACH, NO FURTHER NEEDS AT THIS TIME.
--- NOTE | 2024-12-24 15:05 | NUR ---
TELEPSYCH STAFF CALLED REEMA RN TO REPORT THAT PT HAD DIFFICULTY ANSWERING SOME QUESTIONS. THIS RN AND REEMA RN AT BEDSIDE WITH PATIENT. PT APPEARS DROWSY AND STATES "IM TIRED," BP TAKEN AND ARE FOLLOWIN/35 (44) LA, 70/37 (43) LA, AND 81/44 (51) RA. PT SATS AT 91 ON 1L, O2 INCREASED TO 2L AND PT SATS AT 94. MD NOTIFIED AND AT BEDSIDE TAKING MANUAL BP AND ASSESSING PATIENT, MD STATES VERBAL ORDER TO ADMINISTER 250ML BOLUS OF NS AND RECHECK BP IN 45 MINS.
--- NOTE | 2024-12-24 19:40 | NUR ---
REPORT RECEIVED FROM DAY SHIFT RN. PATIENT RESTING IN BED WITH EYES CLOSED. RESPIRATIONS EVEN AND UNLABORED. CALL LIGHT IN REACH. BED ALARM ON.
--- NOTE | 2024-12-24 20:15 | NUR ---
PATIENT RESTING IN BED. VS AND I&Os OBTAINED AND RECORDED. PATIENT DROWSY. PATIENT ABLE TO HOLD CONVERSATION WHILE IN AND OUT OF SLEEP. UA OBTAINED AND SENT TO LAB. METOPROLOL HELD DUE TO [facility] ENNIS ON FLOOR AND AWARE OF MEDICATION BEING HELD. TRAZADONE HELD DUE TO PATIENT BEING DROWSY, ON FLOOR AND AWARE OF MEDICATION BEING HELD. IV FLUSHES WNL. PATIENT DENIES FURTHER NEEDS AT THIS TIME. BED ALARM ON. CALL LIGHT IN REACH.
[2024-12-24 21:03] LABS: AMPHETAMINES, URINE POSITIVE (NEGATIVE); BARBITURATES, URINE NEGATIVE (NEGATIVE); BENZODIAZEPINE, URINE NEGATIVE (NEGATIVE); CANNABINOID, URINE NEGATIVE (NEGATIVE); COCAINE, URINE NEGATIVE (NEGATIVE); ECSTASY, URINE NEGATIVE (NEGATIVE); FENTANYL, URINE NEGATIVE (NEGATIVE); METHADONE, URINE NEGATIVE (NEGATIVE); OPIATES, URINE NEGATIVE (NEGATIVE); OXYCODONE, URINE NEGATIVE (NEGATIVE); PHENCYCLIDINE, URINE NEGATIVE (NEGATIVE)
--- NOTE | 2024-12-24 21:40 | NUR ---
PATIENT RESTING IN BED WITH EYES CLOSED. RESPIRATIONS EVEN AND UNLABORED. NO FURTHER NEEDS. CALL LIGHT IN REACH. BED ALARM ON.
--- NOTE | 2024-12-24 21:44 | NUR ---
CALL PLACED TO MD ENNIS REGARDING PATIENTS UA LAB RESULTS. NO NEW ORDERS.
--- NOTE | 2024-12-24 23:52 | NUR ---
PATIENT RESTING IN BED WITH EYES CLOSED. RESPIRATIONS EVEN AND UNLABORED. NO FURTHER NEEDS. CALL LIGHT IN REACH. BED ALARM ON.
[2024-12-25] VITALS (8 sets, daily range): BP systolic 92–113; BP diastolic 42–70
--- NOTE | 2024-12-25 01:20 | NUR ---
JORDON AND CINDY EDIN IN TO DO VITALS. PT UP TO BSC. VITALS AND I&O OBTAINED AND DOCUMENTED. PT STATES NO FURTHER NEEDS AT THIS TIME. CALL LIGHT WITHIN REACH AND BED ALARM ON.
--- NOTE | 2024-12-25 02:51 | NUR ---
ROUNDED ON PATIENT, LAYING ON BACK IN BED WITH HOB ELEVATED, 2LNC ON, CPOX ON, PATIENT RESTING WITH EYES CLOSED, RESPIRATIONS EVEN AND UNLABORED, AUDIBLE SNORING. TELE ON. NO NEEDS IDENTIFIED AT THIS TIME. CALL LIGHT AND BELONGINGS IN REACH.
--- NOTE | 2024-12-25 05:00 | NUR ---
VS AND I&O'S COMPLETED AND DOCUMETNED. PATIENT RESTING WITH EYES CLOSED, RESPIRATIONS EVEN AND UNLABORED, EASILY AROUSED FROM SLEEP TO VERBAL COMMANDS AND BACK TO RESTING WITH EYES CLOSED. AUDIBLE SNORING. CPOX AND TELE ON AND VISABLE. 2LNC, BED ALARM SET. NO NEEDS IDENTIFIED AT THIS TIME. CALL LIGHT IN REACH.
--- NOTE | 2024-12-25 07:25 | NUR ---
Pt report received from CINDY Hastings and CINDY Allen. Pt is resting in bed, A&O. States she needs to use the toilet. SBA as pt ambulates into bathroom using FWW. Pt used call light when finished and got back into bed. Pt denies needs at this time. Urinal emptied of 900ml clear yellow urine. Side rails up x4, call light in reach. White board updated.
--- NOTE | 2024-12-25 08:22 | NUR ---
PATIENT EATING BREAKFAST. PATIENT TO GO HOME WITH FAMILY WHEN MEDICALLY CLEARED AT D/C. NO FUTHER CM NEEDS.
--- NOTE | 2024-12-25 08:29 | NUR ---
Spoke with Dr. Bains about the patient's heart rate and sought clarification with him. I advised him I plan to administer metoprolol to help control her heart rate and will hold lisinopril if SBP is below 90 and he was okay with this plan. He advised he plans on discharging her home today.
--- NOTE | 2024-12-25 08:30 | NUR ---
PATIENT LAYING IN BED RESTING. VS OBTAINED. PT REPORTED A HEADACHE 5/10 PAIN. MORNING MEDICATIONS ADMINISTERED. IV PATENT. CALL LIGHT WITHIN REACH. NO OTHER NEEDS AT THIS TIME.
--- NOTE | 2024-12-25 10:04 | NUR ---
Pt is in the shower at this time, using a shower chair, ambulated using FWW with SBA. Linen change done at this time. Pt understands to use call light when she is finished.
[2024-12-25] MEDS ORDERED: SPIRONOLACTONE25 MG PO (10:27)
[2024-12-25] MEDS ORDERED: METOPROLOL SUCC25 MG PO (10:27)
--- NOTE | 2024-12-25 10:31 | NUR ---
PATIENT WAS IN BED AT THIS TIME, PATIENT WANTED A SHOWER SO I SET EVERYTHING UP, AND CHANGED HER LINENS WHILE SHE SHOWERED. NEW GOWN, FRESH WATER, CALL LIGHT WITH IN REACH AND NOTHING ELSE NEEDED AT THIS TIME.
--- NOTE | 2024-12-25 10:54 | NUR ---
THIS RN CALLED JEOVANNY TO DIRECTLY SPEAK WITH NURSE FOR PATIENT. LINE CONNECTED AND PROVIDER DIRECTLY SPEAKING WITH CINDY SAEED.
[2024-12-25] MEDS ORDERED: TOPROL XL25 MG PO (11:06)
--- NOTE | 2024-12-25 11:09 | NUR ---
Pt requests that we reach out to Dr. Sheldon's office at [facility] and have Dr. Bains speak with them about her Care Plan.
--- NOTE | 2024-12-25 11:20 | NUR ---
PC to pt's daughter, Suze, and provided an update. Suze advised that her brother will be coming to pick and shovel man their mother after she is discharged. Advised pt to use the call light when her son arrives so we can transport her out to the vehicle when she is ready after discharge.
== END 2024-12-25 11:54 | disposition home or self-care (01) | DRG 281 ==
LOC: ED 13:40 → CCU 18:12 → MS 18:12
PROVIDERS: Emergency Medicine; ADMIT Internal Medicine; ATTEND Internal Medicine
DX: I50.43 Acute on chronic combined systolic (congestive) and diastolic (congestive) heart failure (principal); I47.10 Supraventricular tachycardia, unspecified; I21.A1 Myocardial infarction type 2; Z87.19 Personal history of other diseases of the digestive system; M19.90 Unspecified osteoarthritis, unspecified site; G25.81 Restless legs syndrome; J44.9 Chronic obstructive pulmonary disease, unspecified; F17.210 Nicotine dependence, cigarettes, uncomplicated; Z98.890 Other specified postprocedural states; Z90.49 Acquired absence of other specified parts of digestive tract; E11.9 Type 2 diabetes mellitus without complications; Z86.19 Personal history of other infectious and parasitic diseases; Z88.0 Allergy status to penicillin; Z88.2 Allergy status to sulfonamides; Z88.1 Allergy status to other antibiotic agents; Z88.8 Allergy status to other drugs, medicaments and biological substances; Z79.899 Other long term (current) drug therapy; Z66 Do not resuscitate; Z91.148 Patient's other noncompliance with medication regimen for other reason; F15.10 Other stimulant abuse, uncomplicated
CPT/HCPCS: 36415; 71045; 80048; 80053; 80307; 83735; 83880; 84100; 84484; 85025; 93005; 93010; 93306; 94762; 96374; 96375; 99285-25; A9270; J1650; J7030; J7040